=== PATIENT | male | born 1975 | race Two or more races ===

== ENCOUNTER 2018-07-28 03:15 | Emergency (ER) | payer MEDICAID ==
[~2018-07-28] VITALS: Ht 182.9 cm; Wt 113.4 kg
[2018-07-28 03:23] VITALS: BP 138/84
[2018-07-28] MEDS ORDERED: KETOROLAC TROMETH 60MG/2ML VIAL IM ONE (03:45)
[2018-07-28] MEDS ORDERED: TRIAMCINOLONE 40MG/ML 1ML VIAL IM ONE (05:15)
[2018-07-28] MEDS ORDERED: LIDOCAINE 2%HCL (LOCAL ANESTH.) INJ 10ml MDV IJ ONE (05:15)
[2018-07-28] MEDS ORDERED: LIDOCAINE 2% (LOCAL ANESTH.) PF 5ml SDV ONE (05:15)
== END 2018-07-28 05:45 | disposition home or self-care (01) ==
LOC: EDBD 03:15 → ER 03:20
DX: S33.5XXA Sprain of ligaments of lumbar spine, initial encounter (principal); M54.41 Lumbago with sciatica, right side; X50.9XXA Other and unspecified overexertion or strenuous movements or postures, initial encounter; Y93.89 Activity, other specified; Y99.8 Other external cause status; Y92.89 Other specified places as the place of occurrence of the external cause
CPT/HCPCS: 20552; 72131; 96372; 99284; J1885; J2001; J3301